=== PATIENT | male | born 1960 | race Caucasian/White ===

== ENCOUNTER 2017-09-13 13:34 | Inpatient (IN) | payer OTHER ==
[~2017-09-13] VITALS: Ht 177.8 cm; Wt 111.2 kg
[2017-09-13 13:46] VITALS: Ht 177.8 cm; Wt 111.2 kg
[2017-09-13 14:08] LABS: BASOPHIL % 0.4 % (0-2); PLATELET COUNT 379 x10^3mcL (130-400)
[2017-09-13 14:13] LABS: RED CELL DISTRIBUTION WIDTH 15.8 % (11.5-14.5)
[2017-09-13 14:17] LABS: CALCIUM 8.4 mg/dL (8.5-10.1); CARBON DIOXIDE 25.6 mmol/L (21-32); CHLORIDE SERUM 106 mmol/L (98-107); CREATININE SERUM 1.2 mg/dL (0.7-1.3); GFR1 > 60 mL/min; GLUCOSE SERUM 136 mg/dL (74-106); POTASSIUM SERUM 4.1 mmol/L (3.5-5.1); SODIUM SERUM 139 mmol/L (136-145)
[2017-09-13 14:25] LABS: ALBUMIN 3.3 g/dL (3.4-5.0); ALKALINE PHOSPHATASE 80 U/L (46-116); ALT/SGPT 12 U/L (16-63); AST/SGOT 9 U/L (15-37); BILIRUBIN TOTAL 0.26 mg/dL (0.20-1.00); CHOLESTEROL 181 mg/dL (<200); CHOLESTEROL/HDL RATIO 6.7; HDL CHOLESTEROL 27 mg/dL (40-60); LIPASE 109 IU/L (73-393); TOTAL PROTEIN, SERUM 6.7 g/dL (6.4-8.2); TRIGLYCERIDES 159 mg/dL (<150)
[2017-09-13 14:37] LABS: T3 TOTAL 0.92 ng/mL
[2017-09-13] MEDS ORDERED: DIGOXIN0.125 M1 (15:27)
[2017-09-13] MEDS ORDERED: DOXYCYCLINE HYC50 MG (15:27)
[2017-09-13] MEDS ORDERED: TOPROL XL25 MG (15:27)
[2017-09-13] MEDS ORDERED: MASON NATURAL1000 IU ×2 (15:27→15:36)
[2017-09-13 15:29] LABS: FREE T4 0.72 ng/dL (0.76-1.46); FREE THYROXINE INDEX 1.6 ug/dL (1.4-4.5); T4(THYROXINE) 5.1 ug/dL (4.7-13.3)
[2017-09-13] MEDS ORDERED: SEROQUEL25 MG (15:29)
[2017-09-13] MEDS ORDERED: CYMBALTA20 M1 (15:30)
[2017-09-13] MEDS ORDERED: METHADONE HCL5 MG (15:30)
[2017-09-13] MEDS ORDERED: COLACE100 MG (15:31)
[2017-09-13] MEDS ORDERED: PROTONIX20 MG (15:36)
[2017-09-13] MEDS ORDERED: TESTOSTERON200 MG/ML (15:36)
[2017-09-13] MEDS ORDERED: NOR10T (15:36)
[2017-09-13 17:36] LABS: MAGNESIUM 2.1 mg/dL (1.8-2.4); PHOSPHOROUS 4.3 mg/dL (2.5-4.9)
[2017-09-13 17:53] VITALS: BP 111/62
[2017-09-13 20:30] VITALS: BP 99/62
[2017-09-13 21:01] VITALS: BP 100/56
[2017-09-13 23:36] LABS: microscopic required? NO
[2017-09-13 23:49] LABS: urine erythrocyte NEGATIVE (NEGATIVE)
[2017-09-14 00:05] LABS: AMPHETAMINE QUAL UR NONE DETECTED (See below)
[2017-09-14 05:29] VITALS: BP 102/59
[2017-09-14 07:44] LABS: BASOPHIL % 0.4 % (0-2); PLATELET COUNT 362 x10^3mcL (130-400); RED CELL DISTRIBUTION WIDTH 15.6 % (11.5-14.5)
[2017-09-14 08:22] LABS: CALCIUM 8.7 mg/dL (8.5-10.1); CHLORIDE SERUM 106 mmol/L (98-107); CREATININE SERUM 1.1 mg/dL (0.7-1.3); GFR1 > 60 mL/min; GLUCOSE SERUM 102 mg/dL (74-106); MAGNESIUM 2.2 mg/dL (1.8-2.4); PHOSPHOROUS 3.9 mg/dL (2.5-4.9); POTASSIUM SERUM 4.3 mmol/L (3.5-5.1); SODIUM SERUM 139 mmol/L (136-145)
== END 2017-09-14 07:08 | disposition left against medical advice (07) | DRG 194 ==
LOC: ED 13:34 → DU 16:29
PROVIDERS: Family Medicine; Specialist
DX: I50.43 Acute on chronic combined systolic (congestive) and diastolic (congestive) heart failure (principal); E44.0 Moderate protein-calorie malnutrition; E11.65 Type 2 diabetes mellitus with hyperglycemia; E83.51 Hypocalcemia; G89.29 Other chronic pain; D63.8 Anemia in other chronic diseases classified elsewhere; Z68.34 Body mass index [BMI] 34.0-34.9, adult; Z87.891 Personal history of nicotine dependence; Z79.891 Long term (current) use of opiate analgesic
CPT/HCPCS: 36600; 83880; 84439; J1885; J7030; J7620; Q0092